=== PATIENT | female | born 1945 | race Caucasian/White ===

== ENCOUNTER → 2019-09-05 14:17 | Outpatient (BNVA) | payer MEDICARE, OTHER, SELFPAY | PROVIDERS: Family Provider Family Medicine; PCP Family Medicine; Visit Provider Nurse Practitioner Family | DX: Z86.39 Personal history of other endocrine, nutritional and metabolic disease (principal) | CPT/HCPCS: 80053; 83036 ==

== ENCOUNTER → 2024-03-08 10:53 | Outpatient (BNVA) | payer MEDICARE, OTHER, SELFPAY | PROVIDERS: Family Provider Family Medicine; PCP Family Medicine; Visit Provider Nurse Practitioner Family | DX: N39.0 Urinary tract infection, site not specified (principal) | CPT/HCPCS: 81000 ==

== ENCOUNTER → 2025-01-10 09:30 | Outpatient (BNVA) | payer MEDICARE, OTHER, SELFPAY | PROVIDERS: Family Provider Family Medicine; PCP Family Medicine; Visit Provider Nurse Practitioner Family | DX: E11.9 Type 2 diabetes mellitus without complications (principal); Z68.30 Body mass index [BMI] 30.0-30.9, adult; F03.90 Unspecified dementia, unspecified severity, without behavioral disturbance, psychotic disturbance, mood disturbance, and anxiety | CPT/HCPCS: 80053; 81000; 82043; 82306; 82607; 83036; 84443; 85025 ==

== ENCOUNTER 2025-02-08 10:28 | Outpatient (CLI) | payer MEDICARE, OTHER, SELFPAY ==
--- NOTE | 2025-02-08 11:00 | MR_ITS ---
WS: [id number] MRI BRAIN WITHOUT CONTRAST HISTORY: F03.90 - Unspecified dementia, unspecified severity, with... COMPARISON: None available. TECHNIQUE: Diffusion imaging, multiplanar T1, T2 and FLAIR imaging obtained. Normal diffusion imaging. No evidence of an acute infarct. Mild to moderate symmetric cerebral and cerebellar atrophy. Small vessel disease in the [place]. Small lacunar infarct in the LEFT middle cerebellar peduncle. Mild small vessel changes in the periventricular white matter. No large territory infarct. Moderate bilateral hippocampal atrophy. Ventricles and extra-axial spaces are normal. No inferior displacement of cerebellar tonsils. Clivus and pituitary gland negative. Dural venous sinuses and stony river of [place] demonstrate no abnormality on this unenhanced studies. Paranasal sinuses: Mucoperiosteal thickening and mucous retention cyst in the LEFT maxillary sinus. No air-fluid levels. Mastoid air cells: Normal. Calvarium and scalp: Hyperostosis frontalis interna. MR/MR head wo con* [id number] IMPRESSION: 1. No acute infarct or hemorrhage. 2. Mild to moderate symmetric cerebral and cerebellar atrophy. 3. Mild small vessel changes. 4. Moderate hippocampal atrophy.
== END 2025-02-08 10:29 | disposition home or self-care (01) ==
LOC: RAD 10:32
PROVIDERS: PCP Nurse Practitioner Family; Visit Provider Nurse Practitioner Family
DX: R41.0 Disorientation, unspecified (principal); F03.90 Unspecified dementia, unspecified severity, without behavioral disturbance, psychotic disturbance, mood disturbance, and anxiety; G31.89 Other specified degenerative diseases of nervous system; I67.89 Other cerebrovascular disease; G31.9 Degenerative disease of nervous system, unspecified
CPT/HCPCS: 70551